=== PATIENT | male | born 1965 | race Caucasian/White ===

== ENCOUNTER 2023-12-16 20:46 | Emergency (ER) | payer SELFPAY ==
[2023-12-16 20:53] VITALS: BP 142/83; PULSE 75; RESP 14; TEMP 36.5; O2SAT 98; BMI 24.4
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
[2023-12-16 21:23] VITALS: BP 144/72; PULSE 71; RESP 15; TEMP 36.8; O2SAT 99
== END 2023-12-16 21:26 ==
PROVIDERS: Emergency Provider Emergency Medicine
DX: Z00.8 Encounter for other general examination (principal)
CPT/HCPCS: 99281